=== PATIENT | female | born 1985 | race Caucasian/White ===

== ENCOUNTER → 2016-08-06 | Outpatient (CLI) | payer BC ==
[~2016-08-06] MED LIST: FRRS300 PO; MTR600X PO; OXYC-57 PO; PRENTAB26 PO
[2016-08-06 11:17] LABS: HEMATOCRIT 34.2 % (37-47)
[2016-08-06 12:09] LABS: URINE APPEARANCE CLEAR (CLEAR); URINE BILIRUBIN NEG (NEG); URINE COLOR YELLOW; URINE EPITHELIAL CELL AUTO >30 /lpf (0-5); URINE NITRITE NEG (NEG); URINE SPECIFIC GRAVITY 1.013 (1.000-1.030); UROBILINOGEN NEG (NEG)
[2016-08-06 12:12] LABS: MANUAL MICROSCOPIC REQUIRED? NO; REVIEW REQ? NO
[2016-08-06 12:13] LABS: GTGD 50 Grams
== END ==
LOC: C.LAB1850 09:44
PROVIDERS: ATTEND Obstetrics & Gynecology
DX: Z34.83 Encounter for supervision of other normal pregnancy, third trimester (principal)

== ENCOUNTER → 2016-09-29 | Outpatient (CLI) | payer BC ==
[2016-09-29 14:19] LABS: URINE APPEARANCE CLOUDY (CLEAR); URINE BILIRUBIN NEG (NEG); URINE COLOR DK YELLOW; URINE EPITHELIAL CELL AUTO >30 /lpf (0-5); URINE NITRITE NEG (NEG); URINE SPECIFIC GRAVITY 1.039 (1.000-1.030); UROBILINOGEN NEG (NEG)
[2016-09-29 14:30] LABS: MANUAL MICROSCOPIC REQUIRED? NO; REVIEW REQ? YES
== END | disposition home or self-care (01) ==
LOC: C.LABSPEC 13:44
PROVIDERS: ATTEND Obstetrics & Gynecology
DX: Z34.83 Encounter for supervision of other normal pregnancy, third trimester (principal); O12.10 Gestational proteinuria, unspecified trimester

== ENCOUNTER 2016-10-11 03:04 | Inpatient (IN) | payer BC ==
[~2016-10-11] VITALS: Ht 157.5 cm; Wt 70.5 kg
[~2016-10-11 03:04] MED LIST changes: -FRRS300 PO; -MTR600X PO; -OXYC-57 PO
[2016-10-11 04:07] VITALS: Ht 157.5 cm; Wt 70.5 kg
[2016-10-11] MEDS ORDERED: OXYTOCIN INJ 20 UNITS in LACTATED RINGER'S 1000ML 1,000 ML IV SCH (04:21)
[2016-10-11] MEDS ORDERED: LANOLIN OINT EXT PRN ×4 (04:30→06:30)
[2016-10-11] MEDS ORDERED: BENZOCAINE 20% AER SPR 82.5 GM CAN EXT PRN ×2 (04:30→06:30)
[2016-10-11] MEDS ORDERED: DIPHTHERIA/TETANUS/PERTUSSIS 0.5 ML SYR/VIAL IM. ONE ×2 (04:30→06:30)
[2016-10-11] MEDS ORDERED: OXYTOCIN 30 UNITS/500ML NSS IV PRN (04:30)
[2016-10-11] MEDS ORDERED: HYDROCORTISONE ACETATE 25 MG SUPP PR PRN ×2 (04:30→06:30)
[2016-10-11] MEDS ORDERED: SUPERCREAM 0.870 % 15GM JAR EXT PRN ×2 (04:30→06:30)
[2016-10-11] MEDS ORDERED: ACETAMINOPHEN 325 MG TAB PO PRN (04:30)
[2016-10-11] MEDS ORDERED: IBUPROFEN 600 MG TAB PO PRN (04:30)
[2016-10-11] MEDS ORDERED: ACETAMINOPHEN/CODEINE 300/30MG TAB PO PRN ×2 (04:30)
[2016-10-11] MEDS ORDERED: LACTATED RINGER'S 1000ML 1,000 ML IV SCH ×3 (04:45→06:23)
[2016-10-11] MEDS ORDERED: LACTATED RINGER'S 1000ML 1,000 ML IV PRN (04:45)
[2016-10-11] MEDS ORDERED: CITRIC ACID/SODIUM CITRATE 15 ML UDC PO ONE (05:00)
[2016-10-11] MEDS ORDERED: CEFAZOLIN IV 2,000 MG in DEXTROSE 5% 50ML 50 ML IV STA (05:03)
[2016-10-11] MEDS ORDERED: MoRPHine SULFATE PF 1 MG/ML 10 ML AMP/VIAL ONE (05:13)
[2016-10-11 05:19] LABS: HEMATOCRIT 30.5 % (37-47); MEAN CELL VOLUME 82.4 fL (80-100); MEAN CORPUSCULAR HEMOGLOBIN 27.6 pg (25-34); MEAN CORPUSCULAR HGB CONC 33.4 g/dl (32-36); MEAN PLATELET VOLUME 9.8 fL (7.4-10.4); PLATELET COUNT 224 K/uL (130-400); WHITE BLOOD COUNT 12.41 K/uL (4.8-10.8)
[2016-10-11 05:28] LABS: INR 0.9 (0.9-1.1); PARTIAL THROMBOPLASTIN RATIO 0.9; PROTHROMBIN TIME (PATIENT) 9.8 SECONDS (9.0-12.0)
[2016-10-11] MEDS ORDERED: ONDANSETRON INJ 2 MG/ML 2 ML VIAL ONE (06:09)
[2016-10-11] MEDS ORDERED: OXYTOCIN INJ 10 UNITS/ML VIAL ONE (06:09)
[2016-10-11] MEDS ORDERED: PHENYLEPHRINE HCL INJ 10 MG/ML VIAL ONE (06:09)
--- NOTE | 2016-10-11 06:27 | [facility] Post Operative Brief Note ---
Immediate Operative Summary Operative Date Oct 11, 2016. Pre-Operative Diagnosis 38week interuterine pregancy, vaginal bleeding, suspect abruption. Post-Operative Diagnosis 1. same 2. Abruption Procedure(s) Performed Low Transverse Section Delivery of live female child at [address] John Rosas Booster Operator Surgeon(s) Kayla Nuñez Estimated Blood Loss 600 Findings approx 250cc clot extruding from hysterotomy upon opening. viable female apgars 7,8. normal uterus, tubes and ovaries bilaterally. Fluids (cc crystalloids) 1500 Specimens Placenta Cord Blood Cord Gases Drains reza Anesthesia spinal with duramorph Complication(s) None Disposition Recovery Room / PACU
[2016-10-11] MEDS ORDERED: SODIUM CHLORIDE 0.9% 1000ML 1,000 ML IV PRN (06:35)
[2016-10-11] MEDS ORDERED: NALOXONE HCL INJ 0.08 MG in SYRINGE 1.8 ML IV PRN (06:35)
[2016-10-11] MEDS ORDERED: LACTATED RINGER'S 1000ML 500 ML IV PRN (06:35)
[2016-10-11] MEDS ORDERED: NALOXONE HCL INJ 1 MG in SODIUM CHLORIDE 0.9% 1000ML 1,000 ML IV PRN (06:35)
--- NOTE | 2016-10-11 06:35 | Anesthesiology Progress Note ---
Anesthesia Post Op Note Date & Time Oct 11, 2016 at 06:35 Notes Mental Status: alert / awake / arousable, participated in evaluation Pt Amnestic to Procedure: Yes Nausea / Vomiting: adequately controlled Pain: adequately controlled Airway Patency, RR, SpO2: stable & adequate BP & HR: stable & adequate Hydration State: stable & adequate Neuraxial Anesthesia: was administered, sensory block is resolving Anesthetic Complications: no major complications apparent
[2016-10-11] MEDS ORDERED: ONDANSETRON INJ 2 MG/ML 2 ML VIAL IV PRN ×2 (06:45→23:50)
[2016-10-11] MEDS ORDERED: MoRPHine SULFATE 2 MG/ML CARP IV PRN (06:45)
[2016-10-11] MEDS ORDERED: NO NARCOTICS OR SEDATIVES SCH (06:45)
[2016-10-11] MEDS ORDERED: KETOROLAC TROMETHAMINE 30 MG/ML VIAL IV. PRN ×2 (06:45→23:50)
[2016-10-11] MEDS ORDERED: NALBUPHINE HCL INJ 10 MG/ML AMP IV PRN (06:45)
[2016-10-11] MEDS ORDERED: DiphenhydrAMINE HCL 50 MG/ML VIAL IV PRN ×2 (06:45→23:50)
[2016-10-11] MEDS ORDERED: DC INTRASPINAL MORPHINE SCH (06:45)
[2016-10-11] MEDS ORDERED: MoRPHine SULFATE PF 1 MG/ML 10 ML AMP/VIAL INT SPINAL PRN (06:45)
[2016-10-11] MEDS ORDERED: NALOXONE HCL 0.4 MG/1 ML VIAL/CARP IV PRN (06:45)
[2016-10-11] MEDS ORDERED: EpHEDrine SULFATE INJ 50 MG/ML AMP IV PRN (06:45)
--- NOTE | 2016-10-11 07:22 | OPERATIVE REPORT ---
DATE OF OPERATION: 10/11/2016 PREOPERATIVE DIAGNOSES: 1. A 38-week intrauterine . 2. Vaginal bleeding. 3. Suspected abruption. POSTOPERATIVE DIAGNOSES: 1. Same. 2. Abruption. PROCEDURE: Primary low transverse section. SURGEON: Earnestine Rosas MD PROPERTY MAINTENANCE TECHNICIAN: MECHELLE IV FLUIDS: 1500 mL. ESTIMATED BLOOD LOSS: 600 mL. ANESTHESIA: Spinal with Duramorph. URINE OUTPUT: Approximately 100 mL. FINDINGS: Approximately 250 mL blood clot extruding from the hysterotomy upon its opening. Viable female was delivered. Apgars of 7 and 8. Normal uterus, tubes and ovaries bilaterally. INDICATIONS: A 31-year-old, 2, para 1-0-0-1 at 38 weeks ega who presented with vaginal bleeding and questionable rupture of membranes. Upon our assessment, it was unclear that she was ruptured, but her bleeding was quite extensive and she was remote from delivery with only occasional contractions and the cervix only 3 cm dilated. She was counseled that a was recommended for suspected abruption. Of note, when positioned for reza catheter on OR table, large amount of blood under buttocks noted. DESCRIPTION OF PROCEDURE: The patient was taken to the operating room and identified. After adequate spinal anesthesia was obtained, she was placed in the supine position with a leftward tilt and prepped and draped in the usual sterile fashion. A Reza catheter was placed. The knife was used to create a Pfannenstiel skin incision that was extended down to the fascia. The fascia was nicked in the midline. This opening was extended sharply using Jimenez scissors. The rectus muscles were dissected off the underlying fascia bluntly. The peritoneal cavity was bluntly entered into after the rectus muscles were in the midline. This opening was stretched. The bladder blade was placed. The vesicouterine peritoneum was grasped with a Brigida clamp and elevated. It was opened up into sharply and the bladder flap was created digitally. The bladder blade was replaced. The knife was used to create a hysterotomy that was then stretched. The findings were as noted above. The amniotic sac was bluntly ruptured. The packing tractor machine operator's hand was placed through the hysterotomy and the bladder blade was removed. With fundal pressure, the cephalic was delivered. The nose and mouth were bulb suctioned. Remainder of the body and shoulders were delivered. The cord was clamped and cut and the was handed off to the awaiting pediatricians. Cord blood and cord gases were obtained. The placenta was manually expressed. The uterus was exteriorized, cleared of all clots and debris. The hysterotomy was reapproximated with 0 Vicryl in a running interlocking fashion followed by a second imbricating layer of 0 Vicryl. There was bleeding in the midline that was stitched with a [id number] suture of 0 Vicryl for excellent hemostasis. The pelvis was irrigated. The uterus was returned to the abdomen. The gutters were cleared of all clots and debris. The hysterotomy was reinspected and noted to be hemostatic. The fascia was closed in a running fashion using 0 Vicryl. Subcutaneous fat was copiously irrigated. The skin was closed in a subcuticular fashion using 4-0 Vicryl. All sponge, lap and needle counts were correct x2. The patient was returned to the recovery room in stable condition. I attest to the content of the Intraoperative Record and any orders documented therein. Any exceptions are noted below. ZORAIDA
[2016-10-11] MEDS: OXYTOCIN INJ 20 UNITS in LACTATED RINGER'S 1000ML 1,000 ML IV SCH ×2 (07:23→15:23)
[2016-10-11] MEDS ORDERED: DOCUSATE SODIUM 100 MG CAP PO SCH (08:00)
[2016-10-11] MEDS: DOCUSATE SODIUM 100 MG CAP PO SCH ×2 (08:59→19:45)
[2016-10-11] MEDS: SIMETHICONE 80 MG CHEW PO SCH ×2 (09:00→19:45)
[2016-10-11 13:10] VITALS: BP 111/69; PULSE 79; TEMP 36.9; O2SAT 97
[2016-10-11 15:15] VITALS: BP 124/72; PULSE 89; TEMP 36.8; O2SAT 97
[2016-10-11 19:45] VITALS: O2SAT 99
[2016-10-11 21:00] VITALS: BP 106/70; PULSE 90; TEMP 37.2; O2SAT 98
[2016-10-11 22:41] VITALS: O2SAT 98
[2016-10-11] MEDS: IBUPROFEN 600 MG TAB PO PRN (23:48)
[2016-10-11] MEDS: OXYCODONE/ACETAMINOPHEN 5-325 TAB PO PRN (23:49)
[2016-10-11 23:50] VITALS: BP 100/63; PULSE 95; TEMP 36.5; O2SAT 97
[2016-10-11] MEDS ORDERED: OXYCODONE/ACETAMINOPHEN 5-325 TAB PO PRN (23:50)
[2016-10-12 03:45] VITALS: BP 109/67; PULSE 89; TEMP 36.8; O2SAT 96
[2016-10-12] MEDS: IBUPROFEN 600 MG TAB PO PRN ×4 (05:55→19:23)
[2016-10-12] MEDS: OXYCODONE/ACETAMINOPHEN 5-325 TAB PO PRN ×4 (05:55→19:23)
[2016-10-12 06:40] LABS: BASO % 0.2 %; BASO ABS # 0.02 K/uL (0-0.2); COMPLETE YES; EOS % 0.5 %; HEMATOCRIT 27.7 % (37-47); IG% 0.3 %; LYMPH % 19.8 %; LYMPH ABS # 2.17 K/uL (1.2-3.4); MEAN CELL VOLUME 84.7 fL (80-100); MEAN CORPUSCULAR HEMOGLOBIN 28.1 pg (25-34); MEAN CORPUSCULAR HGB CONC 33.2 g/dl (32-36); MEAN PLATELET VOLUME 10.3 fL (7.4-10.4); MONO % 9.3 %; NEUT % 69.9 %; PLATELET COUNT 222 K/uL (130-400); RED BLOOD COUNT 3.27 M/uL (4.2-5.4); WHITE BLOOD COUNT 10.96 K/uL (4.8-10.8)
--- NOTE | 2016-10-12 06:55 | Progress Note ---
Subjective Oct 12, 2016. Subjective conversation w/ patient, physical exam Ambulation: ambulating normally Voiding: no voiding problems Diet Tolerance: Regular Diet Lochia: Small Feeding Type: Breast Feeding Pain: no pain issues. Objective Vital Signs Date Time Temp Pulse Resp B/P Pulse Ox O2 Delivery O2 Flow Rate FiO2 10/12/16 03:45 36.8 89 16 109/67 96 Room Air 10/11/16 23:50 Room Air 10/11/16 23:50 36.5 95 18 100/63 97 Room Air 10/11/16 22:41 16 98 10/11/16 21:00 37.2 90 18 106/70 98 Room Air 10/11/16 21:00 18 98 10/11/16 19:45 16 99 10/11/16 15:15 36.8 89 18 124/72 97 Room Air 10/11/16 15:15 97 Room Air 10/11/16 13:10 36.9 79 18 111/69 97 Room Air 10/11/16 13:10 18 97 Physical Exam General Appearance: WELL-APPEARING, WD/WN, NO APPARENT DISTRESS Respiratory/Chest: lungs clear Cardiovascular: regular rate, rhythm Abdomen: non tender, soft Fundus: Firm, Relation to Umbilicus (3 down) Incision Description: Clean, Dry & Intact Extremities: non-tender Laboratory Results Last 24 Hours Test 10/12/16 06:18 White Blood Count 10.96 K/uL Red Blood Count 3.27 M/uL Hemoglobin 9.2 g/dL Hematocrit 27.7 % Mean Corpuscular Volume 84.7 fL Mean Corpuscular Hemoglobin 28.1 pg Mean Corpuscular Hemoglobin Concent 33.2 g/dl Platelet Count 222 K/uL Mean Platelet Volume 10.3 fL Neutrophils (%) (Auto) 69.9 % Lymphocytes (%) (Auto) 19.8 % Monocytes (%) (Auto) 9.3 % Eosinophils (%) (Auto) 0.5 % Basophils (%) (Auto) 0.2 % Neutrophils # (Auto) 7.67 K/uL Lymphocytes # (Auto) 2.17 K/uL Monocytes # (Auto) 1.02 K/uL Eosinophils # (Auto) 0.05 K/uL Basophils # (Auto) 0.02 K/uL RDW Standard Deviation 42.0 fL RDW Coefficient of Variation 13.9 % Immature Granulocyte % (Auto) 0.3 % Immature Granulocyte # (Auto) 0.03 K/uL Assessment and Plan Post-Op Day#: 1 Continue Routine Care: stable, routine care. ambulate, po pain meds. voiding. adv diet.
[2016-10-12 09:30] VITALS: BP 102/67; PULSE 96; TEMP 36.9; O2SAT 97
[2016-10-12] MEDS: DOCUSATE SODIUM 100 MG CAP PO SCH ×2 (10:16→21:59)
[2016-10-12] MEDS: SIMETHICONE 80 MG CHEW PO SCH ×4 (10:16→22:00)
[2016-10-12 15:40] VITALS: BP 117/69; PULSE 94; TEMP 37.1; O2SAT 100; O2SAT 97
[2016-10-12] MEDS ORDERED: OXYC-57 PO (20:56)
[2016-10-12] MEDS ORDERED: MTR600X PO (20:56)
--- NOTE | 2016-10-12 20:58 | Discharge Instructions ---
Discharge Instructions Date of Service Oct 12, 2016. Admission Reason for Admission: 38 Weeks Gestation Of , Vaginal Bleeding Discharge Discharge Diagnosis / Problem: recovery from section Discharge Goals Goal(s): Routine recovery after Activity Recommendations Activity Limitations: per Instructions/Follow-up section . Instructions / Follow-Up Instructions / Follow-Up ACTIVITY RECOMMENDATIONS: * Gradual return to full activity over the next 2-3 weeks. * No lifting - nothing heavier than baby over the next 2-3 weeks. * Do not engage in vigorous exercise, sexual activity or sports until cleared by your physician. * Do not drive or operate any motorized equipment until cleared by your physician. * You may shower/bathe daily. MEDICATIONS: For discomfort or pain, you may use Acetaminophen (Tylenol), Ibuprofen (Advil), or Naproxen (Aleve) following the package directions. For constipation you may use Colace following the package directions. BREAST CARE: If you are not breast feeding: * Wear a supportive bra 24 hours a day for one to two weeks. * Avoid stimulating your breasts and nipples as much as possible during the first few weeks after delivery. * When taking a shower, have the warm water hit your back, not breasts. * When your breasts feel full, apply ice packs. Usually three to four times a day helps ease the discomfort. * Take a mild pain medication (Tylenol / Motrin) when you are uncomfortable. If breast feeding: * Use breast milk to lubricate nipples. Lansinoh cream may be used for sore nipples. You do not need to remove cream prior to breast feeding. If using a different brand of cream, check the label for directions regarding removal of cream prior to nursing. * Wear a supportive bra. * If having problems with breasts or breast feeding, call a analysis consultant or your health care provider. SPECIAL CARE INSTRUCTIONS: When you are discharged from the hospital, it is important for you to follow the instructions listed below: * During the first week at home, you should be able to care for yourself and your baby. In addition, the usual light household activities are encouraged. * Limit your activities to the way you feel. Do not try to clean the house or move furniture. Be sensible. * If you actively engage in sports and have done so up until the time of your delivery, you may resume these activities as soon as you feel able. This may take up to one month or even longer. Use good judgment. * Continue to take your vitamins for at least six weeks after the of your baby. * Your diet need not be limited unless you were on a special diet before your delivery. Breast-feeding mothers need around 2500 calories per day and at least 64-80 ounces of fluid per day (8 to 10 glasses). * You should eat foods from the four major food groups. Crash diets or fad diets are to be avoided. Eating lean meats, fresh fruits and vegetables, low-fat dairy products, high fiber foods and a regular exercise program, will help you get back to your pre- weight without putting your health at risk. * Constipation is sometimes a problem after delivery. Take a mild laxative as needed. If breast feeding, Milk of Magnesia is acceptable to use. You may use a suppository or Fleets enema. * A daily shower or tub bath is suggested. Wash incision daily with warm soapy water and pat dry. It doesn't need to be covered unless drainage is present. * A bloody vaginal discharge will usually continue until around four weeks . A small amount of bleeding may continue for as long as six weeks. Vaginal discharge changes from the bright red bleeding after delivery to pink then brownish and finally yellowish-pink before becoming white and disappearing. * Bleeding may increase with activity. Your first period may come in 4-8 weeks. If you are breast feeding, your period may be delayed even longer. * Frontier (sex) can begin whenever both you and your partner feel comfortable and do not have any form of genital infection. It is recommended that you wait at least six weeks for internal and external healing to occur. If you have questions, please talk to your health care practitioner. A condom should be used to prevent infection and . * Foreplay, gentle intercourse and lubrication is very important the first several times to prevent pain. A water-based lubricant such as K-Y jelly or Astroglide may be used. * If you have RH negative blood and your baby is RH positive, you will receive RHOGAM by injection prior to discharge. The nurse will give you a card to keep with you that has the date and place that you received RHOGAM after delivery. * During your care, you had a Rubella screen done to check for the presence of rubella antibodies in your blood. If your test was negative, you will receive a Rubella vaccine prior to discharge. This vaccine may cause a fever, soreness at the injection site and flu-like symptoms. If these symptoms persist, notify your health care practitioner. is not advised for one month after a Rubella vaccine. * Verbalizes understanding of car seat law as reviewed with patient nursing. * Car Seat hand-out given and reviewed with patient by nursing. * Shaken baby information reviewed with patient by nursing. Call you doctor if: * Heavy bleeding (saturating several pads an hour) or passing clots the size of your fist. * A fever >101 degrees F (38.3 degrees C) on two occasions four hours apart and /or chills. * Unusual pain in the pelvic or vaginal areas. * Call the doctor for any increased redness, drainage or swelling around the incision and any pain unrelieved by prescribed pain medication. * "Baby Blues" lasting longer than two weeks. If you have any questions or concerns, call your health care practitioner at . FOLLOW UP VISIT: * Please call the office at to schedule a 6 week examination. It is important you keep this appointment. It is important for you to make arrangements for either yearly or twice yearly check-ups thereafter. Current Hospital Diet Patient's current hospital diet: Vegetarian Diet, Regular OB Diet Discharge Diet Recommended Diet: Regular OB Diet Procedures Procedures Performed: Low Transverse Section Delivery of live female child at 0558 Pending Studies Studies pending at discharge: no Medical Emergencies . Who to Call and When: Medical Emergencies: If at any time you feel your situation is an emergency, please call [phone] immediately. . Non-Emergent Contact Non-Emergency issues call your: Sales Professional Bilingual . . "Provider Documentation" section prepared by Domonique Santiago. VTE Core Measure Inpt VTE Proph given/why not?: Treatment not indicated
[2016-10-12 23:50] VITALS: BP 111/75; PULSE 84; TEMP 36.4
[2016-10-13] MEDS: IBUPROFEN 600 MG TAB PO PRN ×6 (00:43→23:24)
[2016-10-13] MEDS: OXYCODONE/ACETAMINOPHEN 5-325 TAB PO PRN ×6 (00:44→23:23)
[2016-10-13 07:12] LABS: HEMATOCRIT 24.2 % (37-47)
--- NOTE | 2016-10-13 07:33 | Progress Note ---
Subjective Oct 13, 2016. Subjective conversation w/ patient, physical exam Ambulation: ambulating normally Voiding: no voiding problems Passing Gas: Yes Diet Tolerance: Regular Diet Lochia: Small Feeding Type: Breast Feeding Pain: controlled with oral pain meds Review of Systems Constitutional: No chills, No fatigue, No fever, No problem reported, No sweats , No weakness, No weight loss Breast: No breast lump, No breast pain, No change in shape, No nipple discharge , No problem reported, No see HPI Abdomen: No GI bleeding, No constipation, No diarrhea, No nausea, No pain, No problem reported, No vomiting Objective Vital Signs Date Time Temp Pulse Resp B/P Pulse Ox O2 Delivery O2 Flow Rate FiO2 10/12/16 23:50 36.4 84 18 111/75 10/12/16 23:50 Room Air 10/12/16 15:40 97 Room Air 10/12/16 15:40 37.1 94 18 117/69 100 Room Air 10/12/16 09:30 36.9 96 18 102/67 97 Room Air 10/12/16 09:30 97 Room Air Physical Exam General Appearance: WELL-APPEARING, NO APPARENT DISTRESS Abdomen: soft Fundus: Firm, Non-Tender, Relation to Umbilicus (2 below U) Incision Description: Clean, Dry & Intact Extremities: no calf tenderness Laboratory Results Last 24 Hours Test 10/13/16 06:17 Hemoglobin 8.0 g/dL Hematocrit 24.2 % Assessment and Plan Post-Op Day#: 2 Continue Routine Care: stable recovery continue current care plan add FeSO4 325mg daily to regimen for 6 weeks. would like to be discharged if baby discharged.
[2016-10-13] MEDS ORDERED: FRRS300 PO (07:34)
[2016-10-13 08:00] VITALS: BP 108/75; PULSE 84; TEMP 36.4; O2SAT 98
[2016-10-13] MEDS: FERROUS SULFATE 325 MG TAB PO SCH (08:32)
[2016-10-13] MEDS: SIMETHICONE 80 MG CHEW PO SCH ×4 (08:33→20:00)
[2016-10-13] MEDS: DOCUSATE SODIUM 100 MG CAP PO SCH ×2 (08:34→20:00)
[2016-10-13 15:10] VITALS: BP 113/68; PULSE 83; TEMP 36.9; O2SAT 98
[2016-10-14] VITALS: BP 115/72; PULSE 84; TEMP 36.3
[2016-10-14] MEDS: OXYCODONE/ACETAMINOPHEN 5-325 TAB PO PRN ×3 (04:02→14:40)
[2016-10-14] MEDS: IBUPROFEN 600 MG TAB PO PRN ×3 (04:03→14:39)
--- NOTE | 2016-10-14 07:31 | Progress Note ---
Subjective Oct 14, 2016. Subjective conversation w/ patient, physical exam Ambulation: ambulating normally Voiding: no voiding problems Passing Gas: Yes Diet Tolerance: Regular Diet Lochia: Moderate Feeding Type: Breast Feeding Review of Systems Constitutional: No chills, No fever Respiratory: No cough Cardiac: No chest pain Abdomen: No nausea, No vomiting Objective Vital Signs Date Time Temp Pulse Resp B/P Pulse Ox O2 Delivery O2 Flow Rate FiO2 10/14/16 00:00 36.3 84 18 115/72 Room Air 10/14/16 00:00 Room Air 10/13/16 15:10 36.9 83 18 113/68 98 Room Air 10/13/16 15:10 98 Room Air 10/13/16 08:00 36.4 84 18 108/75 98 Room Air 10/13/16 08:00 98 Room Air Physical Exam General Appearance: WELL-APPEARING, NO APPARENT DISTRESS Respiratory/Chest: no respiratory distress, no accessory muscle use Cardiovascular: no edema Abdomen: non tender, soft Fundus: Firm Incision Description: Clean, Dry & Intact Extremities: no calf tenderness Assessment and Plan Post-Op Day#: 3 Continue Routine Care: Baby on bili bed with increased jaundice currently. Per Dr. Ríos limited chance of D/C later today, or more likely tomorrow.
[2016-10-14 08:20] VITALS: BP 126/75; PULSE 88; TEMP 36.8; O2SAT 97
[2016-10-14] MEDS: DOCUSATE SODIUM 100 MG CAP PO SCH ×2 (08:20→20:20)
[2016-10-14] MEDS: SIMETHICONE 80 MG CHEW PO SCH ×4 (08:20→20:20)
[2016-10-14] MEDS: FERROUS SULFATE 325 MG TAB PO SCH (08:20)
[2016-10-14 16:10] VITALS: BP 127/60; PULSE 86; TEMP 36.4
[2016-10-14 18:48] VITALS: BP_DIAS 60; PULSE 86; TEMP 36.4
--- NOTE | 2016-10-20 09:30 | DISCHARGE SUMMARY ---
ADMISSION DIAGNOSES: 1. Thirty-eight week intrauterine . 2. Vaginal bleeding. 3. Suspected abruption. DISCHARGE DIAGNOSES: 1. Same. 2. Abruption. PROCEDURE: Primary low transverse section. BRIEF HISTORY AND HOSPITAL COURSE: A 31-year-old 2, para 1-0-0-1 at 38 weeks estimated gestational age who presented with vaginal bleeding and questionable rupture of membranes. Upon our assessment it was unclear that she was ruptured but her bleeding was quite extensive and she was remote from delivery with only occasional contractions and cervix only 3 cm dilated. She was counseled that a was recommended for suspected abruption. She underwent the above stated procedure without incident. Her estimated blood loss was 600 mL, however it is significant to mention that approximately 250 mL blood clot was extruding from the hysterotomy at the time the uterus was opened. The resulted in delivery of a viable female , Apgars 7 and 8. The patient's postop course and recovery was otherwise uncomplicated. Her postop hemoglobin was 8. On her postop day #3, she was tolerating a regular diet, voiding spontaneously without difficulty and ambulating without difficulty and was stable for her discharge to home. She was given her routine discharge instructions and instructed to follow up in 6 weeks' time for her checkup. She was given routine pain medication prescriptions and instructed to continue on iron due to her postop hemoglobin.
== END 2016-10-14 20:55 | disposition home or self-care (01) | DRG 766 ==
LOC: C.OPB 03:04 → C.LD 03:05 → C.OPB 04:49 → C.OBG 12:45
PROVIDERS: ADMIT Obstetrics & Gynecology; ATTEND Obstetrics & Gynecology
PROC: 10D00Z1 Extraction of Products of Conception, Low, Open Approach (ICD-10-PCS; principal; 2016-10-11 04:55)
DX: O45.93 Premature separation of placenta, unspecified, third trimester (principal); Z37.0 Single live birth; Z3A.38 38 weeks gestation of pregnancy

== ENCOUNTER → 2016-11-24 | Outpatient (CLI) | payer BC ==
[~2016-11-24] MED LIST changes: +FRRS300 PO; +MTR600X PO; +OXYC-57 PO
== END | disposition home or self-care (01) ==
LOC: C.PAPS 07:53
PROVIDERS: ATTEND Obstetrics & Gynecology
DX: Z12.4 Encounter for screening for malignant neoplasm of cervix (principal)

== ENCOUNTER → 2017-11-25 | Outpatient (CLI) | payer OTHER | END | disposition home or self-care (01) | LOC: C.PAPS 11:45 | PROVIDERS: ATTEND Obstetrics & Gynecology | DX: Z01.419 Encounter for gynecological examination (general) (routine) without abnormal findings (principal) ==